=== PATIENT | male | born 1985 | race Caucasian/White ===

== ENCOUNTER 2024-09-23 07:48 | Emergency (ER) | payer OTHER ==
[~2024-09-23] VITALS: Ht 185.4 cm; Wt 103.0 kg
[~2024-09-23 07:48] MED LIST: AZITHROMYCIN500 MG PO; PRILOSEC20 MG PO
[2024-09-23 08:37] VITALS: BP 145/99
== END 2024-09-23 08:38 | disposition home or self-care (01) ==
LOC: ED 07:48
DX: S93.401A Sprain of unspecified ligament of right ankle, initial encounter (principal); Z79.899 Other long term (current) drug therapy; X50.1XXA Overexertion from prolonged static or awkward postures, initial encounter
CPT/HCPCS: 73610; 99283